=== PATIENT | male | born 1970 | race African-American/Black ===

== ENCOUNTER 2025-04-01 09:23 | Emergency (ER) | payer OTHER, SELFPAY ==
[2025-04-01 09:32] VITALS: BP 118/69; PULSE 63; RESP 12; TEMP 36.6; O2SAT 99; BMI 26.6
--- NOTE | 2025-04-01 09:37 | ED_ITS ---
HPI - Eye Problem General Chief complaint: Eye Problems Stated complaint: Left eye pain, 3 days Time Seen by Provider: 04/01/25 09:35 History of Present Illness HPI Narrative: Patient here for left eye pain and blurry vision. Patient wears reading glasses but forgot to bring him here. Patient had work-related injury, 3 days ago, a rope hit his eye. No bleeding no discharge. Patient states everything looks blurry. No previous history of eye surgery. Visual acuity left eye 2039. Both eyes together 2019. Related Data Allergies Allergy/AdvReac Type Severity Reaction Status Date / Time No Known Drug Allergies Allergy Verified 04/01/25 09:32 Review of Systems Review of Systems Narrative: GENERAL: Negative chills, fatigue, malaise, fever, sweats. HEENT: Negative sinus pain, ear pain, sore throat RESPIRATORY: Negative dyspnea, cough CARDIOVASCULAR: Negative chest pain, palpitations GASTROINTESTINAL: Negative vomiting, nausea, abdominal pain : Negative dysuria, frequency, hematuria MUSCULOSKELETAL: Negative muscle or bony pain SKIN: Negative rash, skin lesions NEUROLOGIC: Negative weakness, numbness ROS Unobtainable: All systems reviewed & are unremarkable except as noted in HPI and below Patient History Social History Smoking Status: Never smoker Smoking Status: Never smoker Exam Narrative Exam Narrative: GENERAL: in no distress, not toxic not dyspneic HEAD: Normocephalic. EYES: Examination right eye, pupils reactive. However examination left eye not reactive to light and very photophobic. There is erythema/injection of the sclera of the left eye. Pupil of the left eye is nonreactive to light but very photophobic. Proparacaine fluorescein Wood's lamp slit lamp use. Negative Paula sign negative ice rink sign. No foreign by no abrasion. Patient not able to tolerate Tobias-Pen. Three attempts were done. No teardrop pupil in the left. ENT: Mucous membranes moist. NECK: Trachea midline. CARDIOVASCULAR: Regular rate and rhythm RESPIRATORY: Clear to auscultation. Breath sounds equal bilaterally. No wheezes, rales, or rhonchi. GASTROINTESTINAL: Abdomen soft, BACK: No flank tenderness. EXTREMITIES: No gross deformities. NEURO: AOx4. Clear speech SKIN: Warm and dry PSYCH: Not anxious, is cooperative Initial Vital Signs Initial Vital Signs: Vital Signs Temperature 98 F 04/01/25 09:32 Pulse Rate 63 04/01/25 09:32 Respiratory Rate 12 04/01/25 09:32 Blood Pressure 118/69 04/01/25 09:32 Pulse Oximetry 99 04/01/25 09:32 Oxygen Delivery Method Room Air 04/01/25 09:32 Course Orders Ordered: ED Orders 04/01/25 09:53 CT orbit BI wo con Stat Discontinued Medications Fluorescein Sodium (Fluorescein 1 Mg Strip) 1 mg EYE-LEFT NOW PRN PRN Reason: eye injury Last Admin: 04/01/25 09:39 Dose: 1 mg Documented By: DENIS Proparacaine HCl (Proparacaine 0.5% Ophth Magui) 1 drops EYE-BOTH PRN PRN PRN Reason: eye injury Last Admin: 04/01/25 09:38 Dose: 1 drop Documented By: DENIS Vital Signs Vital signs: Vital Signs - 8 hr 04/01/25 09:32 Temperature 98 F Pulse Rate 63 Respiratory Rate 12 Blood Pressure 118/69 Pulse Oximetry 99 Oxygen Delivery Method Room Air MDM - Eye Problem MDM Narrative Medical decision making narrative: Patient here for left eye pain and blurry vision. Patient wears reading glasses but forgot to bring him here. Patient had work-related injury, 3 days ago, a rope hit his eye. No bleeding no discharge. Patient states everything looks blurry. No previous history of eye surgery. Visual acuity left eye 2039. Both eyes together 2019. MDM After history and exam, ophthalmology consult, CT orbits fluorescein proparacaine Wood's lamp slit-lamp Differential considered: Includes but not limited to close the globe rupture contusion iritis abrasion foreign body acute closure glaucoma Medical records reviewed: No recent visit for this complaint Imaging studies independently reviewed: CT orbit periorbital edema Consultations: 10:[address] Frances, anthropological linguist, will see patient in the office after CT imaging. Office is down the [place]. Re-evaluations: 10:49 a.m.. Reviewed results with patient and treatment plan. He will go directly to Dr. Frances office now Ophthalmology. It is down the [place]. Discussion: Appropriate for discharge to ophthalmology office. Diagnosis: Globe contusion Discharge Plan Departure Patient Disposition: Home Clinical Impression: Contusion of eye, left Qualifiers: Encounter type: initial encounter Qualified Code(s): S05.12XA - Contusion of eyeball and orbital tissues, left eye, initial encounter Instructions: DI for Eye Contusion Activity Restrictions/Additional Instructions: Ophthalmology service was contacted. Dr. Frances would like to see you now in his office. Go directly to his office now. Your L and I forms were completed Referrals: Cornell Frances MD [Physician, Ophthalmology] Stand Alone Forms: Patient Portal/API, Work Release Note
[2025-04-01] MEDS: PROPARACAINE 0.5% OPHTH SOL 1 DROPS EYE-BOTH (09:38)
[2025-04-01] MEDS: FLUORESCEIN 1 MG STRIP EYE-LEFT (09:39)
--- NOTE | 2025-04-01 09:53 | DI.CT.S_ITS ---
PROCEDURE: CT ORBIT BI WO CON INDICATIONS: Left eye trauma/pain TECHNIQUE: Noncontrast 2.5 mm axial images acquired through the orbits, with coronal and sagittal reformats. For radiation dose reduction, the following was used: automated exposure control, adjustment of mA and/or kV according to patient size. COMPARISON: None. FINDINGS: Image quality: Excellent. Orbits: Globes are symmetrical. No metallic foreign bodies. The optic nerves are normal in size. No retrobulbar masses or fat abnormalities. The extra-ocular muscles are normal and symmetrical in appearance. Lacrimal glands are normal in size. Optic chiasm is normal. Intracranial: Visualized portions of the cerebral hemispheres, brainstem, and spinal cord are normal. Bones and sinuses: Mild left periorbital hematoma. Visualized calvarium and facial bones appear intact. Visualized sinuses and mastoids are clear. IMPRESSION: Mild left periorbital hematoma. Otherwise unremarkable CT orbits with normal CT appearance of the left globe. Dictated by: Brennan Lua M.D. on 04/01/2025 at 10:29 Approved by: Brennan Lua M.D. on 04/01/2025 at 10:35
== END 2025-04-01 11:05 | disposition home or self-care (01) ==
PROVIDERS: Emergency Provider Emergency Medicine
DX: S00.12XA Contusion of left eyelid and periocular area, initial encounter (principal); Y99.8 Other external cause status; W22.8XXA Striking against or struck by other objects, initial encounter
CPT/HCPCS: 70480; 99283